=== PATIENT | female | born 1980 | race Caucasian/White ===

== ENCOUNTER 2017-10-04 10:43 | Inpatient (IN) | payer OTHER ==
[~2017-10-04] VITALS: Ht 157.5 cm; Wt 103.9 kg
[~2017-10-04 10:43] MED LIST: AMOXIL 875 MG875 MG PO; ENDOCET 325 MG-1 TA1 PO; HYDROXYZINE HCL50 M1 PO; KEFLEX500 MG PO; NAPROXEN500 MG PO; PERCOCET 325 MG1 TA2 PO; PRENATAL MULTI1 EAC2 PO
[2017-10-04] MEDS ORDERED: VALTREX500 M1 PO (12:42)
[2017-10-04] MEDS ORDERED: PRENATAL MULTI1 EAC2 PO (12:43)
[2017-10-04 13:02] LABS: ABSOLUTE BASOPHIL COUNT 0 /CUMM (0.0-0.2); ABSOLUTE EOSINOPHIL COUNT 0 /CUMM (0.0-0.7); ABSOLUTE GRANULOCYTE CT 5.9 /CUMM (1.4-6.5); ABSOLUTE LYMPH COUNT 1.4 /CUMM (1.2-3.4); ABSOLUTE MONOCYTE COUNT 0.5 /CUMM (0.10-0.60); BASOPHIL % 0.5 % (0.0-2.0); EOSINOPHIL % 0.3 % (0-5); GRANULOCYTE % 74.7 % (42.2-75.2); HEMATOCRIT 32.5 % (37-47); MEAN CORPUSCULAR HGB CONC 33.7 G/DL (33.0-37.0); MEAN CORPUSCULAR VOLUME 89.1 FL (81.0-99.0); MEAN PLATELET VOLUME 8.3 FL (7.4-10.4); PLATELET COUNT 239 /CUMM (130-400); RBC DISTRIBUTION WIDTH 14.9 % (11.5-14.5); RED BLOOD CELL CT 3.64 /CUMM (4.20-5.40); WHITE BLOOD CELL COUNT 7.9 /CUMM (4.8-10.8)
--- NOTE | 2017-10-05 08:47 | History & Physical ---
General Information and HPI MD Statement: I have seen and personally examined ANGEL HUANG and documented this H&P. The patient is a 37 year old female at [38] weeks and [3] days gestation who presented with a chief complaint of [oligohydramnios]. History of Present Illness: 37yo G1 with IVF now with oligohydramnios (4.2cm) here for induction of labor. care significant for AMA, IVF, obesity, chlamydia infection with JONNATHAN, HSV on Valtrex, macrosomia and positive GBS colonization. She has an untested pelvis and a large fetus with a poor Bennett score. We will try to ripen the cervix and use pitocin for induction of labor. Allergies/Medications Allergies: Coded Allergies: fluconazole (From DIFLUCAN) (Intermediate, BLISTERS 04/03/17) Home Med list Pnv No.122/Iron/Folic Acid ( Multi Tablet) 27 MG IRON-800 MCG TABLET 1 TAB PO DAILY IRON, VITAMIN (Reported) Pnv No.122/Iron/Folic Acid ( Multi Tablet) 27 MG IRON-800 MCG TABLET 1 TAB PO DAILY supplement (Reported) Valacyclovir Hydrochloride (Valtrex) 500 MG TABLET 1 TAB PO DAILY hsv ( Reported) Past History accountant controller History : 1 Para: 1 Last Menstrual Period: 01/08/17 Estimated Delivery Date: 10/15/17 Past accountant controller History: none Medical History Neurological: NONE EENT: NONE Cardiovascular: NONE Respiratory: NONE Gastrointestinal: NONE Hepatic: NONE Renal: NONE Musculoskeletal: NONE Psychiatric: NONE Endocrine: NONE BINDERY HELPER/Reproductive: PCOS Surgical History Pertinent Surgical History: EXP LAP Past Family/Social History Family History Relations & Conditions if any GRANDMOTHER (ANGINA ONSET IN HER 60S). Psychosocial History Smoking Status: Former Smoker Review of Systems Review of Systems Constitutional: Reports: no symptoms. EENTM: Reports: no symptoms. Cardiovascular: Reports: no symptoms. Respiratory: Reports: no symptoms. GI: Reports: no symptoms. Genitourinary: Reports: no symptoms. Musculoskeletal: Reports: no symptoms. Skin: Reports: no symptoms. Neurological/Psychological: Reports: no symptoms. Hematologic/Endocrine: Reports: no symptoms. Immunologic/Allergic: Reports: no symptoms. All Other Systems: Reviewed and Negative Exam & Diagnostic Data Obstetric Exam Wgt Gained During : 40 Pelvimetry: gynecoid Dilation (cm): 0 Effacement (%): 0 Station: -3 Membranes: intact Fluid: unknown Fundal Height (cm): 42 Multiple Gestation? No Contractions: none Infant #1 - FHR Baseline: 140 Category: 1 Estimated Weight: 8.5-9 Presentation: cephalic Patient for Induction? Yes Bennett Score Bennett Score Response Value Cervix Position: posterior 0 Cervix Consistency: medium 1 Cervix Effacement: 0-30% 0 Cervix Dilation: closed 0 Cervix Station: -3 0 Total 1 Physical Exam: HEENT: NCAT Chest: CTA CV: nl S1S2 Abd: gravid cephalic EFW 8.5-9 Cx: LTCP Ext: no c/c/e Neuro: nonfocal Labs Blood Type & Rh: B pos Antibody Screen: neg Hct/Hgb & Platelets #1: Hct/Hgb & Platelets #2: Rubella: imm VDRL #1: nr VDRL #2: nr HbsAg: neg HIV #1: neg HIV #2 neg 1 Hr P Group B Strep: pos Initial Ultrasound: wnl Anatomy Ultrasound: wnl Ultrasound for EFW: 10/24 Genetic Testing: neg Assessment/Plan As Ranked By This Provider Problem List: 1. Core Measures Venous Thromboembolism VTE Risk Factors Obesity No Mechanical VTE Prophylaxis d/t N/A MechProphylax Ordered No VTE Pharm Prophylaxis d/t Bleeding (Active)
--- NOTE | 2017-10-05 08:56 | PN- Obstetrical ---
Subjective Subjective: no c/o Review of Systems: neg Objective Last 24 Hrs of Vital Signs/I&O vss Physical Exam: Cx: LTP FT Ext NT FH 140 Cat 2 Obstetric Exam Dilation (cm): 0 Effacement (%): 0 Station: -3 Membranes: intact Fluid: unknown Multiple Gestation? No Contractions: occ #1 - FHR Baseline: 140 Category: 1 Estimated Weight: 8.5-9 Presentation: cephalic Assessment/Plan Assessment/Plan 38.5 week oligo s/p miso x2 with minimal change will proceed to pitocin induction
--- NOTE | 2017-10-05 18:47 | PN- Obstetrical ---
Subjective Subjective: requesting c section Review of Systems: negative Objective Last 24 Hrs of Vital Signs/I&O vss Physical Exam: Cx: LTCP Ext NT FH Cat 1 UC q2 Obstetric Exam Dilation (cm): 0 Effacement (%): 0 Station: -3 Membranes: intact Fluid: unknown Multiple Gestation? No Contractions: q2 #1 - FHR Baseline: 140 Category: 1 Estimated Weight: 8.5-9 Presentation: cephalic Assessment/Plan Assessment/Plan oligohydramnios at 381/2 weeks GBS, macrosomia Pt requests c section proceed with primary LTCS Problem List: 1.
--- NOTE | 2017-10-05 21:32 | Operative Report ---
Operative/Inv Procedure Report Surgery Date: 10/05/17 Name of Procedure: Primary low transverse Pre-Operative Diagnosis: Patient choice Post-Operative Diagnosis: Same Estimated Blood Loss: 500 mL Surgeon/Line Crew Supervisor: Hillary Abdullahi MD,Kurt Munguia M.D. Anesthesia: spinal Operative/Procedure Note Note: The patient was brought to the operating room and placed on the OR table in the sitting position where she underwent spinal anesthetic without complication. She was repositioned dorsal supine with a block in her right. Venodyne boots were placed and activated and a Morales catheter was inserted into the bladder and draining clear yellow urine. The abdomen was prepped and draped in usual sterile fashion. An testing. A Pfannenstiel skin incision was made with the scalpel and this was taken down to layer of the fascia. The fascia was nicked in the midline and extended bilaterally. The underlying rectus muscles were dissected away. The peritoneum was entered bluntly. About a bladder blade was inserted to protect the bladder from the operative field. A bladder flap was created using Metzenbaum scissors and placed behind the bladder blade. A low transverse uterine incision was made with the scalpel and extended bilaterally. A liveborn female infant was delivered using vacuum suction and handed off to the waiting hazardous waste technician. The placenta was then manually removed intact with three-vessel cord. The uterus was then exteriorized and wiped clean with a wet lap sponge. The uterus was closed in 2 layers of 0 Polysorb the second imbricating the first. The abdomen and pelvis were copiously irrigated and the uterus is placed back into the abdominal cavity. As once again noted to have some bleeding in the midline which was sutured with 0 Polysorb in a figure-of- eight fashion for good hemostasis. [place] coagulant powder was placed on the surgical field. The rectus muscles were reapproximated with one interrupted suture of 0 Polysorb. The fascia was closed with 0 Polysorb in a running nonlocking fashion. Subcutaneous tissues were irrigated and coagulated were needed. Skin was closed using adonay and a dry sterile dressing was applied to the wound. The patient was sent to recovery in good condition. All needle, sponge and instrument counts were correct at the end of the procedure 4.
[2017-10-06 08:14] LABS: ABSOLUTE BASOPHIL COUNT 0 /CUMM (0.0-0.2); ABSOLUTE EOSINOPHIL COUNT 0 /CUMM (0.0-0.7); ABSOLUTE LYMPH COUNT 1.5 /CUMM (1.2-3.4); ABSOLUTE MONOCYTE COUNT 0.5 /CUMM (0.10-0.60); BASOPHIL % 0.4 % (0.0-2.0); EOSINOPHIL % 0.5 % (0-5); HEMATOCRIT 30.8 % (37-47); MEAN CORPUSCULAR HGB 30.1 PG (27.0-31.0); MEAN CORPUSCULAR HGB CONC 33.6 G/DL (33.0-37.0); MEAN CORPUSCULAR VOLUME 89.7 FL (81.0-99.0); MEAN PLATELET VOLUME 8.3 FL (7.4-10.4); PLATELET COUNT 178 /CUMM (130-400); RBC DISTRIBUTION WIDTH 14.8 % (11.5-14.5); RED BLOOD CELL CT 3.44 /CUMM (4.20-5.40)
--- NOTE | 2017-10-07 10:31 | PN- Post Delivery/GYN ---
Subjective Subjective: DESIRES EARLY DISCHARGE Review of Systems: NEG Objective Last 24 Hrs of Vital Signs/I&O VSS Physical Exam: INCISION C/D/I FF EXT NT Assessment/Plan Assessment/Plan S/P C/S POD2 DISCHARGE HOME F/U 1 WEEK Problem List: 1.
[2017-10-07] MEDS ORDERED: IBUPROFEN800 M1 PO (10:37)
[2017-10-07] MEDS ORDERED: DOCUSATE SODIU100 M3 PO (10:37)
[2017-10-07] MEDS ORDERED: PERCOCET 5-3251 EACH PO (10:37)
== END 2017-10-07 12:38 | DRG 765 ==
LOC: GNO 10:43
PROVIDERS: Obstetrics & Gynecology
PROC: 10D00Z1 Extraction of Products of Conception, Low, Open Approach (ICD-10-PCS; principal; 2017-10-05)
PROC: 3E0P7VZ Introduction of Hormone into Female Reproductive, Via Natural or Artificial Opening (ICD-10-PCS; principal; 2017-10-05)
DX: O41.03X0 Oligohydramnios, third trimester, not applicable or unspecified (principal); O98.82 Other maternal infectious and parasitic diseases complicating childbirth; O99.214 Obesity complicating childbirth; B00.9 Herpesviral infection, unspecified; O36.63X0 Maternal care for excessive fetal growth, third trimester, not applicable or unspecified; B95.1 Streptococcus, group B, as the cause of diseases classified elsewhere; Z3A.38 38 weeks gestation of pregnancy; Z37.0 Single live birth; Z88.8 Allergy status to other drugs, medicaments and biological substances
CPT/HCPCS: GNOP; GNOS; 36415; 81001; 87086; J0131; J0690; J1650; J1885; J3490; J7120